=== PATIENT | female | born 1965 | race Caucasian/White ===

== ENCOUNTER 2016-07-07 10:03 | Emergency (ER) | payer MEDICAID ==
[~2016-07-07] VITALS: Ht 160 cm; Wt 94.5 kg
[2016-07-07] MEDS ORDERED: SOD CHLORIDE 0.9% 1,000 ML IV STA (10:55)
[2016-07-07] MEDS ORDERED: MECLIZINE 12.5 MG TAB PO ONE (11:00)
[2016-07-07 11:51] LABS: ADD SCAN DIFF NO
[2016-07-07 11:55] LABS: ADD UMIC YES; URINE BILIRUBIN (Dip) NEGATIVE (NEGATIVE); URINE BLOOD (Dip) NEGATIVE (NEGATIVE); URINE COLOR LT. YELLOW (YELLOW); URINE GLUCOSE (Dip) NEGATIVE (NEGATIVE); URINE KETONES (Dip) NEGATIVE (NEGATIVE); URINE LEUKOCYTE ESTERASE (Dip) TRACE (NEGATIVE); URINE NITRITE (Dip) NEGATIVE (NEGATIVE); URINE TOTAL PROTEIN (Dip) NEGATIVE (NEGATIVE); URINE UROBILINOGEN (Dip) 0.2 E.U./dL (0.1-1.0)
[2016-07-07 11:57] LABS: BASOPHIL # 0.1 10^3/ul (0.0-0.1); BASOPHILS % 0.7 % (0.0-2.0); EOSINOPHILS # 0.2 10^3/ul (0.0-0.5); EOSINOPHILS % 2.4 % (0.0-7.0); HEMATOCRIT 35.2 % (37.0-47.0); HEMOGLOBIN 10.3 g/dl (12.0-16.0); LYMPHOCYTES # 2.3 10^3/ul (0.8-2.9); LYMPHOCYTES % 33.8 % (15.0-51.0); MEAN CORPUSCULAR HGB CONC 29.3 g/dl (32.0-37.0); MEAN CORPUSCULAR VOLUME 64.8 fl (82.0-101.0); MEAN PLATELET VOLUME 9.2 fl (7.4-10.4); MONOCYTE # 0.5 10^3/ul (0.3-0.9); MONOCYTES % 7.3 % (0.0-11.0); NEUTROPHIL # 3.7 10^3/ul (1.6-7.5); NEUTROPHILS % 55.5 % (39.0-77.0); PLATELET COUNT 444 10^3/UL (140-415); RED BLOOD COUNT 5.43 10^6/ul (4.20-5.40); RED CELL DISTRIBUTION WIDTH 19.2 % (11.5-14.5); WHITE BLOOD COUNT 6.7 10^3/ul (4.8-10.8)
[2016-07-07 12:04] LABS: ALBUMIN 4.3 g/dl (3.3-4.9)
[2016-07-07 12:05] LABS: POTASSIUM 4.3 mmol/L (3.5-5.1)
[2016-07-07 12:07] LABS: ALBUMIN/GLOBULIN RATIO 1.16; BILIRUBIN,INDIRECT 0.2 mg/dl (0-1.1); BILIRUBIN,TOTAL 0.2 mg/dl (0.2-1.3); CREATININE 0.54 mg/dl (0.44-1.00)
[2016-07-07 12:08] LABS: CALCIUM 9.1 mg/dl (8.4-10.2); INR 1.04; PROTIME 13.6 Sec (12.2-14.2); PT RATIO 1.1
[2016-07-07 12:09] LABS: PARTIAL THROMBOPLASTIN TIME 27.8 Sec (25.0-35.0)
--- NOTE | 2016-07-07 12:12 | RADRPT ---
PROCEDURE: CT head CLINICAL INDICATION: Vertigo and difficulty walking TECHNIQUE: Contiguous 2.5 mm axial images were obtained from the vertex to the skull base. No int ravenous contrast was administered. The calculated dose length product (DLP) = 630.2 mGy-cm. The CTDlvol = 44.11 mGy. One or more of the following dose reduction techniques were used: Automated ex posure control, adjustment of the mA and or KV according to patient size, or use of iterative recons truction technique. COMPARISON: None FINDINGS: There is no evidence of acute intracranial hemorrhage or acute territorial infarct. No mass or mass effect is seen on this noncontrast study. The ventricles and cisterns are normal in size and confi guration. The ramos-white matter differentiation is within normal limits. The visualized paranasal sinuses are normally aerated. The bony calvarium is unremarkable IMPRESSION: Unremarkable unenhanced CT of the brain RPTAT: .Pito Nava MD, MD Date Time Electronically viewed and signed by .Pito Nava MD, on 07/07/2016 12:12 .W/
[2016-07-07 12:18] LABS: SQUAMOUS EPITHELIAL CELL,UR FEW; URINE RBCS NONE SEEN /HPF (0)
[2016-07-07] MEDS ORDERED: ONDANSETRON 4 MG INJ IV STA (12:24)
[2016-07-07] MEDS ORDERED: DIAZEPAM 5 MG TAB PO ONE (12:30)
--- NOTE | 2016-07-07 12:56 | ERA ---
ER Documentation Chief Complaint Date/Time DATE: 07/07/16 TIME: 12:48 Chief Complaint HEADACHE AND "ROOM FEELS LIKE ITS SPINNING" X 1 DAY HPI This is a 51-year-old French-speaking female with no past medical history that presents to the emergency department complaining of a sudden onset of dizziness that began this morning. The patient states she woke around 7 AM, 5 hours prior to arrival where she felt as though the room was spinning around her. She attempted to ambulate but stated she felt so dizzy as though she was going to pass out. She denied any syncope episode. She was complaining of very mild tinnitus with no pain in the left ear. She denies any recent instrumentation to the left ear. She denies any neck pain. Just prior to arrival the patient states she developed a headache that would radiate from the front to the back. She states this is not the worst headache of her life. There is no alleviating or exacerbating factors to the vertigo she states this is persistent. She felt nauseous but has not experienced any emesis. She denies any recent or remote head trauma ROS All systems reviewed and are negative except as per history of present illness. Allergies Allergies: Coded Allergies: Penicillins (Unverified Allergy, Unknown, 07/07/16) PMhx/Soc Medical and Surgical Hx: pt denies Medical Hx, pt denies Surgical Hx Hx Alcohol Use: No Hx Substance Use: No Hx Tobacco Use: No Physical Exam Vitals Vital Signs Date Time Temp Pulse Resp B/P Pulse Ox O2 Delivery O2 Flow Rate FiO2 07/07/16 10:05 97.0 86 20 180/85 99 Physical Exam Constitutional:Well-developed. Well-nourished. HEENT:Normocephalic. Atraumatic.Pupils were equal round reactive to light. Moist mucous membranes.No tonsillar exudates. Endoscopy exam showed sharp optic disks and venous pulsations were present. Very mild bulging of the left tympanic membrane with no erythema of the left tympanic membrane. The right tympanic membrane appeared grossly normal. No postauricular tenderness bilaterally Neck: No nuchal rigidity. No lymphadenopathy. No posterior cervical spine tenderness or step-offs. Respiratory: Not using accessory muscles of respiration.Lungs were clear to auscultation bilaterally. No rhonchi. No rales. No wheezing. Cardiovascular: Regular rate regular rhythm.No murmurs. No rubs were appreciated.S1, S2 normal. Distal pulses are palpable 2+ bilaterally. GI: Abdomen was soft. Nontender. Non Distended. No pulsatile abdominal masses or bruits. No rebound. No guarding. Bowel sounds were present and normal. Muscle skeletal: Full range of motion of both the upper and lower extremities bilaterally.Normal muscle tone.No assymetrical calf tenderness or swelling. Skin: No petechia, no purpura. No lesions on the palms or the soles of the feet. No maculopapular rash. NEURO: Patient was alert, awake, orientated x3.No facial droop. Gait observed patient was very unsteady in gait which she stated was a result of the feeling of vertigo with no ataxia.Speech had regular rate and rhythm. Romberg sign was positive. No dysdiadochokinesia. Result Diagram: 07/07/16 1150 07/07/16 1150 Results 24 hrs Laboratory Tests Test 07/07/16 11:03 07/07/16 11:50 Urine Color LT. YELLOW Urine Clarity CLEAR Urine pH 7.0 Urine Specific [place] 1.015 Urine Ketones NEGATIVE Urine Nitrite NEGATIVE Urine Bilirubin NEGATIVE Urine Urobilinogen 0.2 E.U./dL Urine Leukocyte Esterase TRACE Urine Microscopic RBC NONE SEEN/HPF Urine Microscopic WBC 0-2/HPF Urine Squamous Epithelial Cells FEW Urine Hemoglobin NEGATIVE Urine Glucose NEGATIVE% Urine Total Protein NEGATIVE White Blood Count 6.710^3/ul Red Blood Count 5.4310^6/ul Hemoglobin 10.3g/dl Hematocrit 35.2% Mean Corpuscular Volume 64.8fl Mean Corpuscular Hemoglobin 19.0pg Mean Corpuscular Hemoglobin Concent 29.3g/dl Red Cell Distribution Width 19.2% Platelet Count 99953^3/UL Mean Platelet Volume 9.2fl Neutrophils % 55.5% Lymphocytes % 33.8% Monocytes % 7.3% Eosinophils % 2.4% Basophils % 0.7% Nucleated Red Blood Cells % 0.0/100WBC Neutrophils # 3.710^3/ul Lymphocytes # 2.310^3/ul Monocytes # 0.510^3/ul Eosinophils # 0.210^3/ul Basophils # 0.110^3/ul Nucleated Red Blood Cells # 0.010^3/ul Prothrombin Time 13.6Sec Prothrombin Time Ratio 1.1 INR International Normalized Ratio 1.04 Activated Partial Thromboplast Time 27.8Sec Sodium Level 137mmol/L Potassium Level 4.3mmol/L Chloride Level 103mmol/L Carbon Dioxide Level 25mmol/L Anion Gap 13 Blood Urea Nitrogen 6mg/dl Creatinine 0.54mg/dl Glucose Level 96mg/dl Calcium Level 9.1mg/dl Total Bilirubin 0.2mg/dl Direct Bilirubin 0.00mg/dl Indirect Bilirubin 0.2mg/dl Aspartate Amino Transf (AST/SGOT) 17IU/L Alanine Aminotransferase (ALT/SGPT) 29IU/L Alkaline Phosphatase 91IU/L Total Protein 8.0g/dl Albumin 4.3g/dl Globulin 3.70g/dl Albumin/Globulin Ratio 1.16 Lipase 56U/L Current Medications Medications (Trade) Dose Ordered Sig/[place] Route PRN Reason Start Time Stop Time Status Last Admin Dose Admin Sodium Chloride (NS) 1,000 ml @ 1,000 mls/hr Q1H STAT IV 07/07/16 10:55 07/07/16 11:54 DC 07/07/16 11:30 Meclizine HCl (Antivert) 25 mg ONCE ONCE PO 07/07/16 11:00 07/07/16 11:01 DC 07/07/16 11:30 Diazepam (Valium) 5 mg ONCE ONCE PO 07/07/16 12:30 07/07/16 12:31 DC 07/07/16 12:31 Ondansetron HCl (Zofran Inj) 4 mg ONCE STAT IV 07/07/16 12:24 07/07/16 12:25 DC 07/07/16 12:31 Procedures/[facility] This patient was seen and evaluated by myself. The patient presented to the emergency department complaining of dizziness. My differential diagnosis included but was not limited to hypovolemia, myocardial infarction, pulmonary embolism, hypoglycemia, hypoxia, anemia, vasovagal episode, hypothyroidism, anxiety, peripheral or central vertigo. The patient was placed on a secured entrance monitor, continuous pulse oximetry and IV access established by nursing staff. The patient had no nystagmus. CT scan of the head showed no acute intracerebral hemorrhage mass-effect or midline shift. The patient has no previous past medical history and no illicit drug use. The patient had received Antivert and Valium with no improvement of her symptoms. She also received a liter of IV fluids. She had no physical exam findings at this time to suggest Mnire's disease, labyrinthitis, meningococcemia however given that she also had in addition to her vertigo, an acute single headache, that presented within hours of onset my differential diagnosis included but was not limited to meningitis, SAH, intracerebral hemorrhage, hypertensive encephalopathy, cranial artery dissection , cerebral venous sinus thrombosis, traumatic, acute sinusitis. The patient has no ocular symptoms to suggest temporal neuritis, acute narrow-angle glaucoma or pituitary apoplexy. The patient did not appear to have a toxic or metabolic etiology such as fever, hypoglycemia, high-altitude disease or carbon monoxide poisoning. This was not the patients worse headache of their life. The patient had a complete neurologic and fundoscopic exam performed by myself that was normal with no focal neurological deficits or retinal hemorrhage. Given that the patient was unable to ambulate due to the persistent vertigo despite treatment in the emergency department she will be admitted for further evaluation into her vertigo and near syncope. Departure Diagnosis: Primary Impression: Vertigo Additional Impression: Near syncope Condition: Serious ELSY PRATT Jul 07, 2016 12:55
[2016-07-07] MEDS ORDERED: ONDANSETRON 4 MG INJ IV PRN ×2 (13:30→15:00)
[2016-07-07] MEDS ORDERED: ACETAMINOPHEN 325 MG TAB PO PRN (13:30)
[2016-07-07 13:45] LABS: BARBITURATES NEGATIVE (NEGATIVE); BENZODIAZEPINES NEGATIVE (NEGATIVE); CANNABINOIDS NEGATIVE (NEGATIVE); COCAINE NEGATIVE (NEGATIVE); OPIATES NEGATIVE (NEGATIVE)
[2016-07-07] MEDS ORDERED: SOD CHLORIDE 0.9% 100 ML ONE (13:46)
[2016-07-07] MEDS ORDERED: IOHEXOL 100 ML ONE (13:46)
--- NOTE | 2016-07-07 14:58 | RADRPT ---
PROCEDURE: CT angiogram brain CLINICAL INDICATION: Severe headache, hypertension, vertigo TECHNIQUE: CT angiogram of the brain was performed on a multidetector CT scanner. The study was rev iewed on a [employer] PACS/3D workstation with 3D-MIP reformations. 85 cc Omnipaque 350 intravenous contrast were administered. One or more of the following dose reduction techniques were used: Auto mated exposure control, adjustment in mA and / or kV according to patient size, use of iterative rec onstructive technique. CTDIvol = 35 mGy and DLP = 645 mGy-cm. COMPARISON: CT brain 07/07/2016 FINDINGS: The bilateral internal carotid arteries are patent. The bilateral middle and anterior cerebral art eries are patent. The bilateral vertebral arteries, basilar artery and bilateral posterior cerebral arteries are patent. No aneurysm or vascular malformation is identified. IMPRESSION: Unremarkable CT angiogram of the brain. .Servando Lei MD, MD Date Time Electronically viewed and signed by .Servando Lei MD, on 07/07/2016 14:58 .O/
[2016-07-07] MEDS ORDERED: ALBUTEROL/IPRATROPIUM (NEB) 3 ML AMP HHN PRN (15:00)
[2016-07-07] MEDS ORDERED: morphine 2 MG INJ IV PRN (15:00)
[2016-07-07] MEDS ORDERED: DOCUSATE SODIUM 100 MG CAP PO PRN (15:00)
[2016-07-07] MEDS ORDERED: HYDROCODONE/APAP (5/325) TAB PO PRN (15:00)
[2016-07-07] MEDS ORDERED: NACL 0.9% 3 ML SYG IV SCH (15:00)
[2016-07-07] MEDS ORDERED: NITROGLYCERIN (SL) 0.4 MG TAB SL PRN (15:00)
[2016-07-07] MEDS ORDERED: LORAZEPAM 2 MG INJ IV PRN (15:00)
[2016-07-07] MEDS ORDERED: MAGNESIUM HYDROXIDE 30ML CUP PO PRN (15:00)
[2016-07-07] MEDS ORDERED: hydrALAzine 20 MG INJ IV PRN (15:00)
[2016-07-07] MEDS ORDERED: NA PHOSPHATE/BIPHOS 133 ML ENEMA PR PRN (15:00)
--- NOTE | 2016-07-07 16:18 | RADRPT ---
PROCEDURE: US Carotids. CLINICAL INDICATION: bruit , dizzy TECHNIQUE: Multiple sonographic of the carotid bifurcation region and vertebral arteries were obta ined utilizing ramos scale, duplex and color-flow imaging. The images were reviewed on a PACS worksta tion. COMPARISON: No prior studies are available for comparison. FINDINGS: Evaluation of the right carotid bifurcation region reveals no significant calcific atherosclerotic d isease. Evaluation of the left carotid bifurcation region reveals no significant calcific atherosclerotic di sease. There is antegrade flow within the vertebral arteries bilaterally. RIGHT CAROTID MEASUREMENTS: Common Carotid Kxscda09.3 (cm/sec) Internal Carotid Artery - updrnzag20.2 (cm/sec) Internal Carotid Artery - mid86.8 (cm/sec) Internal Carotid Artery - .1 (cm/sec) Internal Carotid/Common Carotid0.96 LEFT CAROTID MEASUREMENTS: Common Carotid Rfexjt85.7 (cm/sec) Internal Carotid Artery - eqfmtmey35.4 (cm/sec) Internal Carotid Artery - mid69.9 (cm/sec) Internal Carotid Artery - tkianz80.7 (cm/sec) Internal Carotid/Common Carotid0.75 RPTAT: AA IMPRESSION: No evidence for hemodynamically significant stenosis in the bilateral internal carotid arteries - va lidated velocity measurements with angiographic measurements, velocity criteria are extrapolated fro m diameter data as defined by the Society of Radiologists in Ultrasound Consensus Conference Radiolo gy 2003; 229;340-346. This study does indirectly reference the measurement of the distal ICA diamet er as the denominator for stenosis measurement. Normal antegrade flow in the vertebral arteries bilaterally. .Reji Toledo MD, MD Date Time Electronically viewed and signed by .Reji Toledo MD, MD on 07/07/2016 16:17 .S/
--- NOTE | 2016-07-07 17:01 | HP ---
DATE OF ADMISSION: 07/07/2016 CHIEF COMPLAINT: Dizziness and headache. HISTORY OF PRESENT ILLNESS: A 51-year-old female with no significant past medical history who has b een complaining of dizziness symptoms that have been going on for the last 24 hours. She has never had these symptoms before. The symptoms began around late last night and became worse around 7:00 a .m. this morning. She felt like the room was spinning around her. She did not have any loss of con sciousness but she did have a headache as well that was in front of her head that mildly radiated to the left parietal area. No changes in vision, no chest pain or shortness of breath. No diarrhea, no constipation, no lower GI bleeding. When she decided to come into the ER, she had 1 vomiting epi sode in the ER that was claimed to be bloody in nature. No prior history of any strokes or heart at tacks. She has not started any new medicines at home either. When she came in today, she was found with hypertensive urgency, systolic blood pressures in the 180 range as well. Daughter does state that the family has been having some family stress going on for the last few days as well. PAST MEDICAL HISTORY: As stated above. ALLERGIES: NO KNOWN DRUG ALLERGIES. MEDICATIONS AT HOME: None. PAST SURGICAL HISTORY: None. SOCIAL HISTORY: Negative for smoking, drinking, or IV drug abuse. FAMILY HISTORY: Noncontributory. PHYSICAL EXAMINATION VITAL SIGNS: T-max 97.0, pulse 86, respirations 20, blood pressure 180/85, saturating at 99% on lotus m air. GENERAL: The patient is lying in bed, answering questions appropriately, in no acute distress. HEENT: Pupils equal, round, reactive to light. Extraocular muscles are intact. On the ER exam, it was an endoscopic exam performed by the ER doctor that showed sharp optic disks bilaterally. There was some very mild bulging of the left tympanic membrane but no erythema on the left tympanic membr ane and the right tympanic membrane appeared grossly normal. NECK: Supple, no thyromegaly. LUNGS: Clear to auscultation bilaterally. CARDIOVASCULAR: S1, S2 heard. No rubs or gallops. ABDOMEN: Nontender, nondistended. Normal bowel sounds. No rebound or guarding. MUSCULOSKELETAL: No lower extremity edema bilaterally. NEUROLOGIC: No focal deficits. Speech is intact. LABORATORIES: CBC is normal. Comprehensive metabolic panel is normal. Lipase is normal. Coags ar e normal. U-tox is negative. UA shows trace leukocyte esterase positive. Head CT was unremarkable and a CT angiogram of the brain performed that showed unremarkable CT angiogram of the brain. ASSESSMENT AND PLAN: A 51-year-old female coming in with dizziness symptoms and headache symptoms. Differential diagnosis less likely includes a stroke versus transient ischemic attack, especially g iven the head CT findings. Also worried about peripheral versus central causes of possible vertigo, less likely central, possibly peripheral although her ER exam on physical exam was negative. There also could be a stress component which is likely the most common source of the patient's headache a nd dizziness symptoms nevertheless. IMPRESSION: 1. Headaches and dizziness. We will admit her to telemetry floor. We will keep her on telemetry m onitoring. We will do carotid Dopplers and echocardiogram as well and do neuro checks every 4 hours . Check TSH, A1c and lipid panel as well. 2. Hypertensive urgency. We will try to control the blood pressure better with hydralazine p.r.n. as well. 3. Gastrointestinal prophylaxis, proton pump inhibitor. 4. Deep venous thrombosis prophylaxis, heparin subcutaneous. Dictated By: LINO PADILLA Conf#: [id number] DID#: [id number]
[2016-07-07] MEDS: SOD CHLORIDE 0.45% 1,000 ML IV SCH (17:26)
--- NOTE | 2016-07-07 17:28 | RADRPT ---
Echocardiogram Report Patient Name: ALMA MITCHELL Gender: Female Date: 1965 Study Date: 07-Jul-2016 Porcelain Technician: Marcellus Li RDCS Location: [facility] Ref. Physician: LINO MCGILL Quality: Good Procedures: Transthoracic echocardiogram with complete 2D, M-Mode, and doppler examination. Indications: Dizziness. 2D/M Mode Doppler Measurement Value Normal Ranges Measurement Value Normal Ranges LVIDd 2D 4.5 3.5 - 5.6 cm AV Peak Lester 1.4 m/sec LVIDs 2D 2.3 2.1 - 4.1 cm AV Peak PG 8.2 mmHg LVPWd 2D 0.9 0.6 - 1.1 cm LVOT Peak Lester 1.0 m/sec IVSd 2D 1.0 0.6 - 1.1 cm LVOT Peak PG 3.8 mmHg AoR Diam 2D 2.7 2.0 - 3.7 cm MV E Peak Lester 0.7 m/sec EDV 2D 92.9 cm3 MV A Peak Lester 0.8 m/sec ESV 2D 11.8 cm3 MV E/A 0.9 LA Dimen 2D 3.2 2.3 - 4.0 cm MV Decel Time 150 msec MV Decel Gilliam 5 MV E/A 0.9 TR Peak Lester 2.5 m/sec TR Peak PG 24.1 mmHg RVSP 27.0 mmHg Findings Left Ventricle: Normal left ventricular systolic function. Normal left ventricular cavity size. Normal left ventricular wall thickness. Ejection fraction is visually estimated at 5560 %. Tissue Doppler/Mitral Doppler indices are within normal limits. Right Ventricle: Normal right ventricular size. Normal right ventricular systolic function. Left Atrium: The left atrium is normal in size. Right Atrium: The right atrium is normal in size. Mitral Valve: Normal appearance of the mitral valve. Mild mitral annular calcification. Trace mitral regurgitation. Aortic Valve: Normal appearance of the aortic valve. No significant aortic stenosis or insufficiency. Tricuspid Valve: Normal appearance of the tricuspid valve. Estimated peak PA systolic pressure 27 mmHg. There is trace to mild tricuspid regurgitation. Pulmonic Valve: Normal pulmonic valve appearance. Pericardium: Normal pericardium with no significant pericardial effusion. Aorta: Normal aortic root. IVC: Normal size and normal respiratory collapse consistent with normal right atrial pressure. Conclusions 1.The left ventricle is normal in size and systolic function. 2.Estimated left ventricular ejection fraction of 55-60%. Electronically Signed By: Sarmad Justin 07-Jul-2016 17:28:22 -0700 Patient Name: ALMA MITCHELL Study Date: 07-Jul-2016 [id number]
[2016-07-07 19:00] VITALS: TEMP 98.6
[2016-07-07] MEDS: ACETAMINOPHEN 325 MG TAB PO PRN (19:02)
[2016-07-07 22:00] VITALS: BP 126/60; PULSE 65; RESP 20
[2016-07-07 22:01] VITALS: Ht 160 cm; Wt 94.5 kg
[2016-07-07] MEDS: HEPARIN 5,000 UNIT/0.5 ML VIAL SC SCH (22:52)
[2016-07-08] VITALS (11 sets, daily range): BP systolic 111–161; BP diastolic 57–88; PULSE 64–73; RESP 18–20
[2016-07-08] MEDS: SOD CHLORIDE 0.45% 1,000 ML IV SCH ×2 (06:15→17:25)
[2016-07-08] MEDS: PANTOPRAZOLE (EC) 40 MG TAB PO SCH (06:15)
[2016-07-08] MEDS: ACETAMINOPHEN 325 MG TAB PO PRN (06:38)
[2016-07-08] MEDS: HEPARIN 5,000 UNIT/0.5 ML VIAL SC SCH ×2 (08:26→20:18)
[2016-07-08 11:57] LABS: ADD SCAN DIFF NO
--- NOTE | 2016-07-08 11:59 | PN ---
Date/Time of Note Date/Time of Note DATE: 07/08/16 TIME: 11:56 Assessment/Plan VTE Prophylaxis VTE Prophylaxis Intervention: heparin Lines/Catheters IV [facility]ter Type (from [email or web address] Peripheral IV Urinary Cath still in place: No Assessment/Plan Chief Complaint/Hosp Course ASSESSMENT AND PLAN: 51-year-old female coming in with dizziness symptoms and headache symptoms. Differential diagnosis less likely includes a stroke versus transient ischemic attack, but Head CT neg. Also worried about peripheral versus central causes of possible vertigo, less likely central, possibly peripheral although her ER exam on physical exam was negative. There also could be a stress component which is likely the most common source of the patient's headache and dizziness symptoms nevertheless. 1. Headaches and dizziness - still present. carotid Dopplers and echocardiogram were nL. - will continue neuro checks, consider MRI brain - will get Neuro consult given continued smpts. - consider meclizine prn 2. Hypertensive urgency - resolved - hydralazine p.r.n. as well. 3. Gastrointestinal prophylaxis, proton pump inhibitor. 4. Deep venous thrombosis prophylaxis, heparin subcutaneous. Problems: Subjective 24 Hr Interval Summary Free Text/Dictation Pt still with BENITES and dizziness symptoms. Worked with PT, but having some left sided weakness as well. Exam/Review of Systems Vital Signs Vitals Vital Signs Date Time Temp Pulse Resp B/P Pulse Ox O2 Delivery O2 Flow Rate FiO2 07/08/16 11:30 98.3 76 18 111/65 98 07/08/16 00:00 Room Air Intake and Output 07/07/16 07/07/16 07/08/16 15:00 23:00 07:00 Intake Total 700 ml Balance 700 ml Exam GENERAL: The patient is lying in bed, answering questions appropriately, in no acute distress. HEENT: Pupils equal, round, reactive to light. Extraocular muscles are intact. On the ER exam, it was an endoscopic exam performed by the ER doctor that showed sharp optic disks bilaterally. There was some very mild bulging of the left tympanic membrane but no erythema on the left tympanic membrane and the right tympanic membrane appeared grossly normal. NECK: Supple, no thyromegaly. LUNGS: Clear to auscultation bilaterally. CARDIOVASCULAR: S1, S2 heard. No rubs or gallops. ABDOMEN: Nontender, nondistended. Normal bowel sounds. No rebound or guarding. MUSCULOSKELETAL: No lower extremity edema bilaterally. 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 Results Result Diagram: 07/07/16 1150 07/07/16 1150 Results 24 hrs Laboratory Tests Test 07/07/16 12:25 07/07/16 12:50 Urine Opiates Screen NEGATIVE Urine Barbiturates NEGATIVE Urine Amphetamines Screen NEGATIVE Urine Benzodiazepines Screen NEGATIVE Urine Cocaine Screen NEGATIVE Urine Cannabinoids NEGATIVE Free Thyroxine 0.96 Serum HCG, Qualitative NEGATIVE Medications Medications Current Medications Ondansetron HCl (Zofran Inj) 4 mg Q6H PRN IV NAUSEA AND/OR VOMITING; Start at 15:00 Acetaminophen (Tylenol Tab) 650 mg Q6H PRN PO PAIN LEVEL 1-3 OR FEVER Last administered on 07/08/16 06:38; Admin Dose 650 MG; Start 07/07/16 at 15:00 Acetaminophen/ Hydrocodone Bitart ([place] (5/325)) 1 tab Q6H PRN PO MODERATE PAIN LEVEL 4-6; Start 07/07/16 at 15:00 Morphine Sulfate (morphine) 2 mg Q4H PRN IV SEVERE PAIN LEVEL 7-10; Start 07/07 at 15:00 Docusate Sodium (Colace) 100 mg Q12H PRN PO CONSTIPATION; Start 07/07/16 at 15: 00 Magnesium Hydroxide (Milk Of Mag) 30 ml DAILY PRN PO CONSTIPATION; Start at 15:00 Sodium Biphosphate/ Sodium Phosphate (Fleet Enema) 133 ml DAILY PRN MD CONSTIPATION; Start 07/07/16 at 15:00 Pantoprazole (Protonix Tab) 40 mg DAILY@06 PO Last administered on 07/08/16 06 :15; Admin Dose 40 MG; Start 07/08/16 at 06:00 Heparin Sodium (Porcine) 5000 unit 5,000 unit Q12 SC Last administered on 08:26; Admin Dose 5,000 UNIT; Start 07/07/16 at 21:00 Sodium Chloride (1/2 NS) 1,000 ml @ 75 mls/hr [id number] IV Last administered on 07/08/16 06:15; Admin Dose 75 MLS/HR; Start 07/07/16 at 14:45 Lorazepam (Ativan) 0.5 mg Q6H PRN IV ANXIETY; Start 07/07/16 at 15:00 Hydralazine HCl (Apresoline) 10 mg Q6H PRN IV ELEVATED BLOOD PRESSURE; Start at 15:00 Nitroglycerin (Nitroglycerin (Sl Tab) 0.4 Mg) 1 tab Q5M PRN SL ANGINA; Start at 15:00 Meclizine HCl (Antivert) 12.5 mg TID PRN PO NAUSEA; Start 07/08/16 at 12:00; Status LINO HOUGH Jul 08, 2016 11:59
[2016-07-08] MEDS ORDERED: MECLIZINE 12.5 MG TAB PO PRN (12:00)
[2016-07-08 12:10] LABS: POTASSIUM 4.3 mmol/L (3.5-5.1)
[2016-07-08 12:12] LABS: CREATININE 0.58 mg/dl (0.44-1.00)
[2016-07-08 12:13] LABS: CHOL/HDL RATIO 3.8 RATIO; PHOSPHORUS 3.6 mg/dl (2.5-4.9)
[2016-07-08 12:24] LABS: BASOPHILS % 0.4 % (0.0-2.0); EOSINOPHILS # 0.2 10^3/ul (0.0-0.5); EOSINOPHILS % 2.4 % (0.0-7.0); HEMATOCRIT 34.5 % (37.0-47.0); HEMOGLOBIN 10.1 g/dl (12.0-16.0); LYMPHOCYTES # 1.9 10^3/ul (0.8-2.9); LYMPHOCYTES % 26.4 % (15.0-51.0); MEAN CORPUSCULAR HEMOGLOBIN 19.2 pg (29.0-33.0); MEAN CORPUSCULAR HGB CONC 29.3 g/dl (32.0-37.0); MEAN CORPUSCULAR VOLUME 65.5 fl (82.0-101.0); MEAN PLATELET VOLUME 9.2 fl (7.4-10.4); MONOCYTE # 0.4 10^3/ul (0.3-0.9); NEUTROPHIL # 4.5 10^3/ul (1.6-7.5); NEUTROPHILS % 64.5 % (39.0-77.0); PLATELET COUNT 455 10^3/UL (140-415); RED BLOOD COUNT 5.27 10^6/ul (4.20-5.40); RED CELL DISTRIBUTION WIDTH 18.4 % (11.5-14.5)
[2016-07-08 12:44] LABS: THYROID STIMULATING HORMONE 2.63 MIU/L (0.465-4.680)
--- NOTE | 2016-07-08 16:05 | CONS ---
Date/Time of Note Date/Time of Note DATE: 07/08/16 TIME: 16:00 Assessment/Plan Assessment/Plan Chief Complaint/Hosp Course 51 year old female with undiagnosed hypertension admitted with severe vertigo, likely peripheral etiology. -Meclizine 12.5 mg TID standing -MRI Brain w/o contrast ordered to r/o possibility of posterior fossa ischemia -IV Toradol prn for headache -IV reglan prn for nausea -PT for vestibular gait/balance training -will follow Problems: Consultation Date/Type/Reason Admit Date/Time Jul 07, 2016 at 13:30 Date of Consultation: Jul 07, 2016 Type of Consultation: neurology Reason for Consultation vertigo Referring Provider: LINO MCGILL Hx of Present Illness 51 year old female with no significant history presented with acute onset dizziness, headache and nausea. She awoke with these symptoms, persisted over 24 hours prompting admission. She was unable to get out of bed due to severe room spinning sensation, no focal neurologic deficits described. She denies similar sx in the past. She denies recent illness, has no relief with tylenol prn for headache. Meclizine given in the ER did improve her vertigo. She also c/ o left sided swelling/numbness. dizziness weakness left side Social History Smoking Status: Never smoker Exam/Review of Systems Vital Signs Vitals Vital Signs Date Time Temp Pulse Resp B/P Pulse Ox O2 Delivery O2 Flow Rate FiO2 07/08/16 15:16 98.6 74 20 126/58 98 07/08/16 00:00 Room Air Intake and Output 07/07/16 07/07/16 07/08/16 14:59 22:59 06:59 Intake Total 700 ml Balance 700 ml Exam Constitutional: alert, oriented, well developed Head: atraumatic, normocephalic Neurological: SAUTE CHEF II-XII intact, DTR's symmetric (discomfort on EOM testing, no nystagmus seen however patient becomes very symptomatic), nl mental status, nl speech Results Result Diagram: 07/08/16 1145 07/08/16 1145 Results 24 hrs Laboratory Tests Test 07/08/16 11:45 White Blood Count 7.0 Red Blood Count 5.27 Hemoglobin 10.1 L Hematocrit 34.5 L Mean Corpuscular Volume 65.5 L Mean Corpuscular Hemoglobin 19.2 L Mean Corpuscular Hemoglobin Concent 29.3 L Red Cell Distribution Width 18.4 H Platelet Count 455 H Mean Platelet Volume 9.2 Neutrophils % 64.5 Lymphocytes % 26.4 Monocytes % 6.0 Eosinophils % 2.4 Basophils % 0.4 Nucleated Red Blood Cells % 0.0 Neutrophils # 4.5 Lymphocytes # 1.9 Monocytes # 0.4 Eosinophils # 0.2 Basophils # 0.0 Nucleated Red Blood Cells # 0.0 Sodium Level 137 Potassium Level 4.3 Chloride Level 104 Carbon Dioxide Level 27 Anion Gap 10 Blood Urea Nitrogen 8 Creatinine 0.58 Glucose Level 111 Hemoglobin A1c 5.5 Calcium Level 9.0 Phosphorus Level 3.6 Magnesium Level 2.0 Triglycerides Level 255 H Cholesterol Level 148 LDL Cholesterol, Calculated 59 HDL Cholesterol 38 Cholesterol/HDL Ratio 3.8 Thyroid Stimulating Hormone (TSH) 2.630 Medications Medications Current Medications Ondansetron HCl (Zofran Inj) 4 mg Q6H PRN IV NAUSEA AND/OR VOMITING; Start at 15:00 Acetaminophen (Tylenol Tab) 650 mg Q6H PRN PO PAIN LEVEL 1-3 OR FEVER Last administered on 07/08/16 06:38; Admin Dose 650 MG; Start 07/07/16 at 15:00 Acetaminophen/ Hydrocodone Bitart ([place] (5/325)) 1 tab Q6H PRN PO MODERATE PAIN LEVEL 4-6 Last administered on 07/08/16 14:55; Admin Dose 1 TAB; Start at 15:00 Morphine Sulfate (morphine) 2 mg Q4H PRN IV SEVERE PAIN LEVEL 7-10; Start 07/07 at 15:00 Docusate Sodium (Colace) 100 mg Q12H PRN PO CONSTIPATION; Start 07/07/16 at 15: 00 Magnesium Hydroxide (Milk Of Mag) 30 ml DAILY PRN PO CONSTIPATION; Start at 15:00 Sodium Biphosphate/ Sodium Phosphate (Fleet Enema) 133 ml DAILY PRN [place] CONSTIPATION; Start 07/07/16 at 15:00 Pantoprazole (Protonix Tab) 40 mg DAILY@06 PO Last administered on 07/08/16 06 :15; Admin Dose 40 MG; Start 07/08/16 at 06:00 Heparin Sodium (Porcine) 5000 unit 5,000 unit Q12 SC Last administered on 3/29/ 17at 08:26; Admin Dose 5,000 UNIT; Start 07/07/16 at 21:00 Sodium Chloride (1/2 NS) 1,000 ml @ 75 mls/hr [id number] IV Last administered on 07/08/16t 06:15; Admin Dose 75 MLS/HR; Start 07/07/16 at 14:45 Lorazepam (Ativan) 0.5 mg Q6H PRN IV ANXIETY; Start 07/07/16 at 15:00 Hydralazine HCl (Apresoline) 10 mg Q6H PRN IV ELEVATED BLOOD PRESSURE; Start at 15:00 Nitroglycerin (Nitroglycerin (Sl Tab) 0.4 Mg) 1 tab Q5M PRN SL ANGINA; Start at 15:00 Meclizine HCl (Antivert) 12.5 mg TID PO ; Start 07/08/16 at 21:00 MAHI CARRION MD Jul 08, 2016 16:05
[2016-07-08] MEDS ORDERED: KETOROLAC 30 MG INJ IV STA (16:06)
[2016-07-08] MEDS ORDERED: KETOROLAC 30 MG INJ IV PRN (16:30)
[2016-07-08] MEDS: METOCLOPRAMIDE 10 MG INJ IV SCH (18:00)
[2016-07-08] MEDS: MECLIZINE 12.5 MG TAB PO SCH (20:17)
[2016-07-09] VITALS (10 sets, daily range): BP systolic 116–121; BP diastolic 54–62; PULSE 67–108; RESP 18–20
--- NOTE | 2016-07-09 01:33 | RADRPT ---
PROCEDURE: MR Brain without contrast. CLINICAL INDICATION: Dizziness. TECHNIQUE: An MRI of the brain was performed on a 1.5 thang scanner utilizing the following sequen scott: Sagittal T1 weighted, axial T2 weighted, axial FLAIR, coronal GRE, and axial diffusion weighted with ADC mapping. COMPARISON: CT brain 07/07/2016 FINDINGS: No evidence of restricted diffusion to suggest acute or early subacute ischemic infarction. There i s no evidence of intracranial hemorrhage, mass effect, or midline shift. No extra-axial fluid collec tions are seen. No hypointense signal abnormalities are seen on the GRE images to suggest the presence of blood degr adation products. Several nonspecific T2 signal hyperintensity foci in the subcortical and perivent ricular white matter compatible with sequelae of chronic microvascular ischemic injury. The brain parenchyma is normal in signal intensity and morphology with preservation of ramos white di fferentiation . Age appropriate size of the ventricles and subarachnoid spaces. The posterior fossa contents, brainstem, seventh - eighth cranial nerve complexes, pituitary axis, o rbits, paranasal sinuses, and mastoid air cells are unremarkable. Normal flow voids are visible in the proximal intracranial arteries and dural sinuses, indicating pa tency. IMPRESSION: 1. No acute or early subacute ischemic infarction. 2. Several subcortical white matter foci of T2 signal hyperintensity which may represent sequelae of migraine headaches or chronic microvascular ischemic change. 3. No intracranial hemorrhage RPTAT:AAJJ Physician Socorro Date Time Electronically viewed and signed by Physician Socorro on 07/09/2016 01:33 KACY/
[2016-07-09] MEDS: SOD CHLORIDE 0.45% 1,000 ML IV SCH (06:45)
[2016-07-09] MEDS: PANTOPRAZOLE (EC) 40 MG TAB PO SCH (08:00)
[2016-07-09] MEDS: MECLIZINE 12.5 MG TAB PO SCH ×2 (08:01→12:07)
[2016-07-09] MEDS: HEPARIN 5,000 UNIT/0.5 ML VIAL SC SCH (08:10)
[2016-07-09] MEDS: METOCLOPRAMIDE 10 MG INJ IV SCH ×3 (08:18→12:07)
[2016-07-09 10:27] LABS: ADD SCAN DIFF NO
[2016-07-09 10:35] LABS: BASOPHILS % 0.7 % (0.0-2.0); EOSINOPHILS # 0.2 10^3/ul (0.0-0.5); EOSINOPHILS % 3.4 % (0.0-7.0); HEMATOCRIT 33.5 % (37.0-47.0); HEMOGLOBIN 9.7 g/dl (12.0-16.0); LYMPHOCYTES # 1.9 10^3/ul (0.8-2.9); LYMPHOCYTES % 31.2 % (15.0-51.0); MEAN CORPUSCULAR HEMOGLOBIN 18.8 pg (29.0-33.0); MEAN PLATELET VOLUME 9.4 fl (7.4-10.4); MONOCYTE # 0.5 10^3/ul (0.3-0.9); MONOCYTES % 7.7 % (0.0-11.0); NEUTROPHIL # 3.5 10^3/ul (1.6-7.5); NEUTROPHILS % 56.7 % (39.0-77.0); PLATELET COUNT 411 10^3/UL (140-415); RED BLOOD COUNT 5.15 10^6/ul (4.20-5.40); RED CELL DISTRIBUTION WIDTH 18.9 % (11.5-14.5); WHITE BLOOD COUNT 6.1 10^3/ul (4.8-10.8)
[2016-07-09 10:53] LABS: POTASSIUM 3.8 mmol/L (3.5-5.1)
[2016-07-09 10:56] LABS: CALCIUM 8.7 mg/dl (8.4-10.2); CREATININE 0.54 mg/dl (0.44-1.00)
--- NOTE | 2016-07-09 11:57 | CONS ---
Date/Time of Note Date/Time of Note DATE: 07/09/16 TIME: 11:54 Consult Date/Type/Reason Admit Date/Time Jul 07, 2016 at 13:30 Initial Consult Date 07/07/16 Type of Consultation: neurology Reason for Consultation vertigo Ordering Provider: LINO MCGILL Subjective vertigo improved complains of mild headache, improved from meds last night. Objective Vital Signs Date Time Temp Pulse Resp B/P Pulse Ox O2 Delivery O2 Flow Rate FiO2 07/09/16 08:18 85 07/09/16 07:07 98.0 19 117/54 97 07/08/16 00:00 Room Air Intake and Output 07/08/16 07/08/16 07/09/16 15:00 23:00 07:00 Intake Total 600 ml 200 ml Balance 600 ml 200 ml Exam Constitutional: alert, oriented, well developed Head: atraumatic, normocephalic Neurological: PASTRY COOK HELPER II-XII intact, DTR's symmetric (discomfort on EOM testing, no nystagmus seen however patient becomes very symptomatic), nl mental status, nl speech Results/Medications Result Diagram: 07/09/16 1015 07/09/16 1015 Results 24 hrs Laboratory Tests Test 07/09/16 10:15 White Blood Count 6.1 Red Blood Count 5.15 Hemoglobin 9.7 L Hematocrit 33.5 L Mean Corpuscular Volume 65.0 L Mean Corpuscular Hemoglobin 18.8 L Mean Corpuscular Hemoglobin Concent 29.0 L Red Cell Distribution Width 18.9 H Platelet Count 411 Mean Platelet Volume 9.4 Neutrophils % 56.7 Lymphocytes % 31.2 Monocytes % 7.7 Eosinophils % 3.4 Basophils % 0.7 Nucleated Red Blood Cells % 0.0 Neutrophils # 3.5 Lymphocytes # 1.9 Monocytes # 0.5 Eosinophils # 0.2 Basophils # 0.0 Nucleated Red Blood Cells # 0.0 Sodium Level 139 Potassium Level 3.8 Chloride Level 105 Carbon Dioxide Level 26 Anion Gap 12 Blood Urea Nitrogen 12 Creatinine 0.54 Glucose Level 98 Calcium Level 8.7 Medications Current Medications Ondansetron HCl (Zofran Inj) 4 mg Q6H PRN IV NAUSEA AND/OR VOMITING; Start at 15:00 Acetaminophen (Tylenol Tab) 650 mg Q6H PRN PO PAIN LEVEL 1-3 OR FEVER Last administered on 07/08/16 06:38; Admin Dose 650 MG; Start 07/07/16 at 15:00 Acetaminophen/ Hydrocodone Bitart ([place] (5/325)) 1 tab Q6H PRN PO MODERATE PAIN LEVEL 4-6 Last administered on 07/08/16 14:55; Admin Dose 1 TAB; Start at 15:00 Morphine Sulfate (morphine) 2 mg Q4H PRN IV SEVERE PAIN LEVEL 7-10; Start 07/07 at 15:00 Docusate Sodium (Colace) 100 mg Q12H PRN PO CONSTIPATION; Start 07/07/16 at 15: 00 Magnesium Hydroxide (Milk Of Mag) 30 ml DAILY PRN PO CONSTIPATION; Start at 15:00 Sodium Biphosphate/ Sodium Phosphate (Fleet Enema) 133 ml DAILY PRN [place] CONSTIPATION; Start 07/07/16 at 15:00 Pantoprazole (Protonix Tab) 40 mg DAILY@06 PO Last administered on 07/09/16 08 :00; Admin Dose 40 MG; Start 07/08/16 at 06:00 Heparin Sodium (Porcine) 5000 unit 5,000 unit Q12 SC Last administered on 08:10; Admin Dose 5,000 UNIT; Start 07/07/16 at 21:00 Sodium Chloride (1/2 NS) 1,000 ml @ 75 mls/hr [id number] IV Last administered on 07/08/16 06:15; Admin Dose 75 MLS/HR; Start 07/07/16 at 14:45 Lorazepam (Ativan) 0.5 mg Q6H PRN IV ANXIETY; Start 07/07/16 at 15:00 Hydralazine HCl (Apresoline) 10 mg Q6H PRN IV ELEVATED BLOOD PRESSURE; Start at 15:00 Nitroglycerin (Nitroglycerin (Sl Tab) 0.4 Mg) 1 tab Q5M PRN SL ANGINA; Start at 15:00 Meclizine HCl (Antivert) 12.5 mg TID PO Last administered on 07/09/16 08:01; Admin Dose 12.5 MG; Start 07/08/16 at 21:00 Ketorolac Tromethamine (Toradol) 30 mg Q6H PRN IV PAIN; Start 07/08/16 at 16:30 ; Stop 07/11/16 at 16:29 Metoclopramide HCl (Reglan) 5 mg Q6 IV Last administered on 07/09/16t 08:18; Admin Dose 5 MG; Start 07/08/16 at 18:00 Assessment/Plan Chief Complaint/Hosp Course 51 year old female with undiagnosed hypertension admitted with severe vertigo, BPPV. -Continue on Meclizine may dose 25 mg q8h prn for discharge -MRI Brain shows chronic microvascular changes, may benefit from low dose aspirin 81 mg for secondary stroke prevention weight loss, maintaining normotensive blood pressure -outpatient PT for vestibular gait/balance training -dc planning she may follow up with neurology outpatient w Dr. Chowdhury Problems: MAHI CARRION MD Jul 09, 2016 11:57
--- NOTE | 2016-07-09 12:17 | PDOCDIS ---
Discharge Instructions CONDITION Patient Condition: Stable HOME CARE INSTRUCTIONS: Diet Instructions: Low Fat /Cholesterol ACTIVITY: Activity Restrictions: Slowly Increase Activity FOLLOW UP/APPOINTMENTS Appointments Take your medications, see your doctor in 1 week. LINO MCGILL Jul 09, 2016 12:17
[2016-07-09] MEDS ORDERED: MECL-77 PO (12:18)
[2016-07-09] MEDS ORDERED: ASPI81TA3 PO (12:18)
--- NOTE | 2016-07-09 12:59 | DS ---
DATE OF ADMISSION: 07/07/2016 DATE OF DISCHARGE: 07/09/2016 A 51-year-old female originally admitted on 07/07/2016, being discharged home on 07/09/2016. HOSPITAL COURSE: The patient came in with dizziness and headache symptoms. She was admitted to the telemetry floor and seen by the neurology team. She underwent brain imaging studies. Head CT was unremarkable. She underwent MRI of the brain as well that showed no acute or early subacute ischemi c infarct. There were several subcortical white matter foci of T2 signal hyperintensity that may re present sequelae of migraine headaches or chronic microvascular ischemic changes. In any event, she was monitored. She had a CTA of the brain that was unremarkable as well. She had a carotid Dopple r study that showed no evidence of any hemodynamically significant stenosis in the bilateral interna l carotid arteries. In any event, the patient was found with severe vertigo, likely peripheral in c ause. She was started on meclizine, which helped improve her symptoms as well. She was also given Toradol for headache symptom control. Her headache symptoms improved and she had less dizziness sym ptoms by the time of discharge. She also had a 2D echocardiogram that showed an ejection fraction o f 50% to 60%, normal left ventricular size and normal left ventricular systolic function. She was a ble to ambulate better and tolerate a p.o. diet. Her vital signs were stable on the day of discharg e and she will be discharged home today in improved condition. She will be sent with meclizine 25 m g p.o. q. 8 hours p.r.n., aspirin 81 mg daily. She will need to follow up in the clinic outpatient in the next 1 to 2 weeks. FINAL DIAGNOSES: 1. Headache and dizziness secondary most likely to severe vertigo and peripheral benign positional. Now improved on meclizine. 2. Headaches, possibly secondary to mild migraines. Now improved on pain control medications. 3. Hypertension. Stable. 4. High triglycerides. Diet control. Time spent on discharging the patient was 40 minutes. Dictated By: LINO PADILLA Conf#: [id number] DID#: [id number]
== END 2016-07-09 16:35 | disposition home or self-care (01) ==
LOC: FTE 10:03 → TEL 13:30
PROVIDERS: ADMIT Family Medicine; ATTEND Family Medicine
DX: R51 Headache (principal); I16.0 Hypertensive urgency; I10 Essential (primary) hypertension; R42 Dizziness and giddiness; R00.0 Tachycardia, unspecified
CPT/HCPCS: 70450; 70496; 70551; 80048; 80053; 80061; 80307; 81001; 83036; 83690; 83735; 84100; 84439; 84443; 84703; 85025; 85610; 85730; 93306; 93880; 96372; 96374; 96376; 97161; J1644; J1885; J2405; J2765; J7030; Q9967; Z7500; Z7502; Z7610; 81003; G0378

== ENCOUNTER 2016-07-14 11:44 | Outpatient (CLI) | payer MEDICAID ==
[~2016-07-14] VITALS: Ht 160 cm; Wt 92.7 kg
[~2016-07-14 11:44] MED LIST: ASPI81TA3 PO; MECL-77 PO
[2016-07-14 11:47] VITALS: BP 116/69; PULSE 98; RESP 18; Ht 160 cm; Wt 92.7 kg
--- NOTE | 2016-07-14 15:22 | PN ---
Date/Time of Note Date/Time of Note DATE: 07/14/16 TIME: 15:19 Outpatient Progress Note Chief Complaint Vertigo/labile hypertension/obesity HPI Vertigo/patient has off-and-on dizziness, especially when she turned her head, no fall, no impaired vision, no ear pain or discharge, slightly better with Antivert, Labile hypertension/patient was recently hospitalized with a labile hypertension , patient blood pressure at present normal, Obesity/patient morbidly obese, no history of thyroid problem, Review of Systems Const: No Fever, no chills, no Wt. loss, no Fatigue, normal appetite, morbidly obese, no diaphoresis. Eyes: No pain, no discharge, no redness, no visual change, no foreign body. ENT: No pain, no bleeding, no congestion, no sore throat, no dysphagia, no discharge or rhinitis slight ringing the ears, no pain or discharge, Lymph: No adenopathy, no tender nodes, no lymphedema. Resp: No SOB, no cough, no sputum, no wheezing, no chest pain. CV: No chest pain, no palpitaions, no ALVAREZ, no PND, no edema. GI: Normal appetite, no pain, no nausea, no vomiting, no diarrhea, no blood, no constipation. : No frequency, no urgency, no dysuria, no hematuria, no flank pain, no discharge, no bleeding. Musc: No bone/joint pain, no back pain, no neck pain, no knee pain, no restricted ROM. Skin: No rash, no skin lesions, no erythema, no laceration, no bruising, no pruritus. Neuro: No BENITES, patient has dizziness, no syncope, no seizure, no focal-weakness. Endo: No polyuria, no polydypsia, no dry-skin, no temp-intolerance. Psych: No hallucinations, no depression, no anxiety, no suicidal ideation. Ext: No edema, no pain, no ulcer, no weakness. Physical Exam Vital Signs Date Time Temp Pulse Resp B/P Pulse Ox O2 Delivery O2 Flow Rate FiO2 07/14/16 11:47 99.0 98 18 116/69 98 Room Air General Appearance: A 51 year-old [female who appears well-developed, well- nourished, in no acute distress. HEENT: Head normocephalic, atraumatic. Pupils equal, round, reactive to light and accommodate. Sclerae are no jaundice. Nasal turbinates pink without erythema or nasal discharge. Mucous membranes pink and moist without lesions. Oropharynx clear without any exudate or discharge. NECK: Supple. Trachea midline, No thyromegaly, No cervical lymphadenopathy, No mass, No carotid bruits, No JVD, Carotid pulses 2+ bilaterally. PULMONARY: Clear to auscultaion bilaterally, No retractions, Chest expansion symmetric bilaterally, no rales, no ronchi, no dulness on percussion. CARDIAC: Normal SI and S2, Regular rate and rythm, no murmur, gallop, or rub. GASTROINTESTINAL: Abdomen is soft, non-tender, Non Rigid, No distention, Positive bowel sounds x4 quadrants, Liver normal. SKIN: Warm, dry, no rash, no bruise, no echmosis. EXTREMITIES: Bilateral lower extremities normal, no edema, no phlabitus, pulse palpable, no contracture. MUSCULOSKELETAL: Spine Normal, Non-tender, Normal range of motion, No swelling, no deformity, no clubbing, or cyanosis, the patient has no edema to bilateral lower extremities, dorsalis pedis pulses palpable bilaterally. NEUROLOGIC: The patient is awake, alert, oriented, responding to yes/no questions appropriately, moving all extremities, cranial nerve intact, normal strenght, normal power, normal coordination, normal gait. Allergies Coded Allergies: Penicillins (Unverified Allergy, Unknown, 07/07/16) PMH History of vertigo, and obesity, Social Hx Noncontributory Family Hx Noncontributory Assessment/Plan Impression Vertigo/labile hypertension/obesity Plan Patient education done about vertigo, patient advised not to turn too fast, not to bend too fast, and moved to fast, fall precaution, Patient advised to continue Antivert, patient has enough supply, Patient to follow with the primary care physician in few days, Medications Home Meds Active Scripts Meclizine Hcl* (Meclizine Hcl*) 25 Mg Tablet, 25 MG PO Q8H Y for DIZZINESS for 30 Days, #90 TAB Prov:LINO MCGILL S. 07/09/16 Aspirin* (Aspirin* Chew) 81 Mg Tab.chew, 81 MG PO DAILY for 30 Days, TAB.CHEW 1 Refill Prov:LINO MCGILL S. 07/09/16 ANNABEL OROZCO MD Jul 14, 2016 15:22
== END 2016-07-15 13:15 | disposition home or self-care (01) ==
LOC: DCC 11:44
PROVIDERS: ATTEND Internal Medicine
DX: R42 Dizziness and giddiness (principal); I10 Essential (primary) hypertension; E66.9 Obesity, unspecified
CPT/HCPCS: G0463

== ENCOUNTER 2017-04-06 23:26 | Emergency (ER) | payer MEDICAID, OTHER ==
[~2017-04-06] VITALS: Ht 157.5 cm; Wt 101.3 kg
[2017-04-07 00:08] VITALS: Ht 157.5 cm; Wt 101.3 kg
[2017-04-07] MEDS ORDERED: HYDROCODONE/APAP (10/325) TAB PO ONE (04:30)
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
[2017-04-07] MEDS ORDERED: IBUP-1542 PO (05:36)
[2017-04-07] MEDS ORDERED: HYDR-906 PO (05:36)
[2017-04-07 05:48] VITALS: BP 124/69; PULSE 92; RESP 16
== END 2017-04-07 05:49 | disposition home or self-care (01) ==
LOC: FTE 23:26
DX: S20.212A Contusion of left front wall of thorax, initial encounter (principal); V49.40XA Driver injured in collision with unspecified motor vehicles in traffic accident, initial encounter; Z79.82 Long term (current) use of aspirin
CPT/HCPCS: 71010; 71100; 73030; Z7502; Z7610